=== PATIENT | male | born 1950 | race Caucasian/White ===

== ENCOUNTER 2018-06-28 20:03 | Emergency (ER) | payer OTHER, BC ==
[~2018-06-28] VITALS: Ht 182.9 cm; Wt 115.2 kg
[2018-06-28 20:08] VITALS: Ht 182.9 cm; Wt 115.2 kg
[2018-06-28 20:33] LABS: BASOPHIL % 0.6 % (0-2); PLATELET COUNT 211 x10^3mcL (130-400); RED CELL DISTRIBUTION WIDTH 13.9 % (11.5-14.5)
[2018-06-28 23:13] VITALS: BP 180/94
== END 2018-06-28 23:13 | disposition home or self-care (01) ==
LOC: ED 20:03
PROVIDERS: Emergency Medicine
DX: R04.0 Epistaxis (principal); I10 Essential (primary) hypertension; E11.9 Type 2 diabetes mellitus without complications; I48.91 Unspecified atrial fibrillation; Z79.01 Long term (current) use of anticoagulants; Z88.6 Allergy status to analgesic agent

== ENCOUNTER 2018-07-01 10:06 | Emergency (ER) | payer OTHER, BC ==
[~2018-07-01] VITALS: Ht 182.9 cm; Wt 114.3 kg
[2018-07-01 10:12] VITALS: Ht 182.9 cm; Wt 114.3 kg
[2018-07-01 10:48] VITALS: BP 149/80
== END 2018-07-01 10:49 | disposition home or self-care (01) ==
LOC: ED 10:06
DX: R04.0 Epistaxis (principal); I10 Essential (primary) hypertension; E11.9 Type 2 diabetes mellitus without complications; I48.91 Unspecified atrial fibrillation; Z88.6 Allergy status to analgesic agent